=== PATIENT | male | born 1990 | race Caucasian/White ===

== ENCOUNTER → 2017-06-29 | Outpatient (CLI) | payer OTHER ==
--- NOTE | 2017-07-07 07:29 | SLEEPCENT ---
DATE OF STUDY: 06/29/2017 REFERRING PROVIDER: Mary Morrison RPA INTERPRETATION: Nocturnal polysomnography was performed for the evaluation of sleep apnea syndrome symptoms consisting of excessive daytime sleepiness, mood disorders, snoring, observed apnea, gasping respirations, morning headaches and nonrestorative sleep. This was a split night study. For the entire study, 8 hours and 22 minutes of data was reviewed with 439 minutes of sleep identified. Sleep latency was 14.5 minutes. Rapid eye movement (REM) latency was 100.5 minutes. All stages of sleep were observed. Sleep efficiency 88.7%. EKG showed normal sinus rhythm with an average 74 beats per minute. Speeding and slowing was noted surrounding some respiratory events. No epileptiform discharge observed. PART 1: DIAGNOSTIC STUDY: There were 186 respiratory events identified of 10 seconds in duration or longer during the first 119.5 minutes of sleep. This gives an apnea-hypopnea index (AHI) of 93.4. TAMAYO was 28.1. Oxygen saturation valentine was 62%. These events were predominantly obstructive apneas/hypopneas. Periodic limb movement index was 2.0. PART 2: CPAP TITRATION: Having clearly identified severe obstructive sleep apnea during the diagnostic section, the patient was fit with a ResMed AirFit F-10 full face mask of medium size. 4 cm of water pressure was applied to the circuit and the lights were dimmed. CPAP initially started at 4 cm of water pressure, was increased a high of 14 cm of water pressure, which appeared optimal. On this pressure, his AHI was 0 and his TAMAYO was 0.3. Oxygen saturation valentine was 90%. No significant periodic limb movements. Supine REM sleep was seen on this pressure with a reasonably good waveform. IMPRESSION: 1. Obstructive sleep apnea (DUSTIN), severe, reasonably palliated on CPAP at 12 cm of water pressure. RECOMMENDATION: Recommend continuation of CPAP therapy at the above pressure via a medium ResMed AirFit F-10 full face mask or mask of his preference. Clinical correlation will be necessary to ensure eradication of symptoms. edited: 07/10/2017 0920 tkf [id number]
== END ==
LOC: M SLEEP 19:59
PROVIDERS: ATTEND Internal Medicine Pulmonary Disease
DX: G47.30 Sleep apnea, unspecified (principal)